=== PATIENT | male | born 1955 | race Caucasian/White ===

== ENCOUNTER 2018-01-31 09:38 | Day surgery (SDC) | payer MEDICAID, SELFPAY ==
[2018-01-31 10:26] VITALS: BP 151/82; PULSE 88; RESP 16; TEMP 37; O2SAT 97
[2018-01-31] MEDS: Lactated Ringers 1,000 ML 30 ML IV ×3 (10:46→14:01)
--- NOTE | 2018-01-31 12:13 | COLE_ITS ---
Date of service: 01/31/18 Time of Service: 12:12 Colonoscopy Report Date of procedure: 01/31/18 Pre-op diagnosis general: Colorectal cancer screening Post-op diagnosis procedure note: other (1. Colon polyps 2. External hemorrhoids) Procedure: Colonoscopy to the cecum with biopsies by hot snare and cold forceps Surgeon: Arvind Porter Anesthesia proc note operative: MAC (James Denise CRNA; ASA 2 Mallampati class II) Estimated blood loss (mL): 1 Pathology: other (1. Sigmoid colon polyp 2. Rectosigmoid polyp 3. Rectal polyp) Complications: None Disposition: same day Indications: 62 y/o male with history of HTN presents for his first colonoscopy screening pre -op. He denies a family history of colon cancer. He reports changes in bowel habits to include bright red blood in stool, with increasing frequency over the past year. He reports that his PCP said he had hemorrhoids followng a rectal exam. Denies black tarry stools, abdominal pain, diarrhea or constipation. He denies constitutional symptoms. Denies use of marijuana or any other recreational or illegal drugs. Prep: Miralax/Dulcolax (Prep quality excellent) Findings: In examining the colon from cecum to anus, the patient was noted to have 3 polyps with stigmata of recent bleeding. The first polyp was identified in the distal sigmoid colon and removed by snare biopsy, and was approximately 1 cm in greatest diameter. Second polyp was identified in the rectosigmoid colon was greater than a centimeter in greatest diameter and removed by hot snare. The last polyp was identified in the rectum and removed by cold biopsy. No other abnormalities are noted in the colon, rectum, and anus, but on examination of the perineum he was noted to have significant external hemorrhoid disease. Procedure Description: The patient was seen in the day surgery waiting area. His identification was confirmed, and procedure checked. He was then brought to the procedure room. Monitoring for telemetry, blood pressure, oxygen saturation, and end tidal CO2 monitoring were applied. An appropriate time out was performed to confirm, identification, allergies, medication, procedure, was performed. Sedation was titrated for affect by the GUS; Once adequate sedation was achieved, I performed a inspection of the external perineum, and a digitial rectal examination. The patient was noted to have significant external hemorrhoid disease but no other abnormalities were noted in the perineum.. On digital rectal examination, there was no blood, no masses, good rectal tone, and a normal prostate. I advanced the colonoscope from the anus to the cecum under direct visualization. The cecum was identified by the ileal-cecal valve, and the appendiceal orifice. The scope was then withdrawn in circumferential manner from the cecum to the rectum. Two polyps were identified in the colon both were a centimeter or greater in diameter and removed by hot snare biopsy. No other abnormalities are noted of the colon the scope was then withdrawn into the rectum. A single polyp less than 1 cm in greatest diameter was identified in the rectum and removed by cold biopsy forceps. No other abnormalities are noted of the rectum or anorectal. The scope was then withdrawn, terminating the procedure. There were no complications during the procedure, and the patient tolerated the procedure well. He was returned to the day surgery recovery area in good condition. Plan: We will await pathology before making further recommendations.
--- NOTE | 2018-01-31 12:53 | BOWEL_PTH ---
PATIENT: Payal Harry LOC: [facility] U#:[id number] AGE/SX: 62/M ROOM: RE01/31/[address]: Arvind Porter DO : 1955 BED: DIS: 01/31/2018 SPEC #: [id number] RECD: 01/31/18 17:17 STATUS: LOLA REQ #: [id number] CHERELLE: 01/31/18 12:[address]: Arvind Porter DEPT: Surgical Specimen RECD BY: Inocencia Alex ENTERED: 01/31/18 17:19 SP TYPE: Bowel OTHR DR: Filiberto Keyes Tissues: 1 - BIOPSY BOWEL 2 - BIOPSY BOWEL 3 - BIOPSY BOWEL Procedures: GROSS AND MICRO LEVEL 4 Comments: [id number]
--- NOTE | 2018-01-31 14:13 | W.PM.DSUDISC ---
Discharge Plan Disposition Patient Disposition: HOME Condition: Good Discharge Details Reason For Visit: SCREENING Attending Provider: Arvind Porter Primary Care Provider: Filiberto Keyes Home Meds and New Rx's Prescriptions: Continue omega-3 fatty acids 1,000 MG capsule 1 tab PO DAILY RF: 0 aspirin [Aspir-81] 81 MG tablet,delayed release (DR/EC) 1 tab PO DAILY RF: 0 amlodipine 10 MG tablet 10 mg PO DAILY Qty: 90 RF: 0 atorvastatin 40 mg Tablet 40 mg PO DAILY RF: 0 labetalol 200 mg Tablet 200 mg PO BID RF: 0 chlorthalidone 25 mg Tablet 25 mg PO DAILY RF: 0 losartan 100 mg Tablet 100 mg PO HS RF: 0 aspirin 325 mg Tablet 325 mg PO DAILY RF: 0 Discharge Instructions Instructions: Colonoscopy (DC) Stand Alone Forms: Colonoscopy Post Instructions, [place] (DSU) Activity:: Activity as Tolerated Diet:: As Tolerated Discharge Orders Discharge Orders: Discharge Order (Routine); Ordered 01/31/18 Ordered By: Arvind Porter DS: Diagnosis Discharge Diagnosis (1) Encounter for colorectal cancer screening: Status: Acute Asessment and Plan: Colonoscopy performed with polypectomy: Colonoscopy Report Date of procedure: 01/31/18 Pre-op diagnosis general: Colorectal cancer screening Post-op diagnosis procedure note: other (1. Colon polyps 2. External hemorrhoids) Procedure: Colonoscopy to the cecum with biopsies by hot snare and cold forceps Surgeon: Arvind Porter Anesthesia proc note operative: MAC (James Denise CRNA; ASA 2 Mallampati class II) Estimated blood loss (mL): 1 Pathology: other (1. Sigmoid colon polyp 2. Rectosigmoid polyp 3. Rectal polyp) Complications: None Disposition: same day Indications: 62 y/o male with history of HTN presents for his first colonoscopy screening pre-op. He denies a family history of colon cancer. He reports changes in bowel habits to include bright red blood in stool, with increasing frequency over the past year. He reports that his PCP said he had hemorrhoids followng a rectal exam. Denies black tarry stools, abdominal pain, diarrhea or constipation. He denies constitutional symptoms. Denies use of marijuana or any other recreational or illegal drugs. Prep: Miralax/Dulcolax (Prep quality excellent) Findings: In examining the colon from cecum to anus, the patient was noted to have 3 polyps with stigmata of recent bleeding. The first polyp was identified in the distal sigmoid colon and removed by snare biopsy, and was approximately 1 cm in greatest diameter. Second polyp was identified in the rectosigmoid colon was greater than a centimeter in greatest diameter and removed by hot snare. The last polyp was identified in the rectum and removed by cold biopsy. No other abnormalities are noted in the colon, rectum, and anus, but on examination of the perineum he was noted to have significant external hemorrhoid disease. Procedure Description: The patient was seen in the day surgery waiting area. His identification was confirmed, and procedure checked. He was then brought to the procedure room. Monitoring for telemetry, blood pressure, oxygen saturation, and end tidal CO2 monitoring were applied. An appropriate time out was performed to confirm, identification, allergies, medication, procedure, was performed. Sedation was titrated for affect by the [employer]; Once adequate sedation was achieved, I performed a inspection of the external perineum, and a digitial rectal examination. The patient was noted to have significant external hemorrhoid disease but no other abnormalities were noted in the perineum.. On digital rectal examination, there was no blood, no masses, good rectal tone, and a normal prostate. I advanced the colonoscope from the anus to the cecum under direct visualization. The cecum was identified by the ileal-cecal valve, and the appendiceal orifice. The scope was then withdrawn in circumferential manner from the cecum to the rectum. Two polyps were identified in the colon both were a centimeter or greater in diameter and removed by hot snare biopsy. No other abnormalities are noted of the colon the scope was then withdrawn into the rectum. A single polyp less than 1 cm in greatest diameter was identified in the rectum and removed by cold biopsy forceps. No other abnormalities are noted of the rectum or anorectal. The scope was then withdrawn, terminating the procedure. There were no complications during the procedure, and the patient tolerated the procedure well. He was returned to the day surgery recovery area in good condition. Plan: We will await pathology before making further recommendations.
[2018-01-31 14:28] VITALS: BP 129/57; PULSE 81; RESP 16; TEMP 35.8; O2SAT 94
== END 2018-01-31 15:00 | disposition home or self-care (01) ==
PROVIDERS: PCP Family Medicine; Visit Provider Surgery
PROC: 0DJD8ZZ Inspection of Lower Intestinal Tract, Via Natural or Artificial Opening Endoscopic (ICD-10-PCS; CPT 45378; principal; 2018-01-31 11:30)
DX: Z12.11 Encounter for screening for malignant neoplasm of colon (principal); D12.5 Benign neoplasm of sigmoid colon; D12.7 Benign neoplasm of rectosigmoid junction; D12.8 Benign neoplasm of rectum; I10 Essential (primary) hypertension; J44.9 Chronic obstructive pulmonary disease, unspecified; Z87.891 Personal history of nicotine dependence
CPT/HCPCS: 45380; 45385; 88305; J2250; J3010

== ENCOUNTER 2018-03-05 08:25 | Outpatient (REF) | payer MEDICAID, SELFPAY ==
[2018-03-05 13:46] LABS: Anion Gap 10.7 mmol/L (3-11); BUN 22 mg/dL (7-18); CO2 27.3 mmol/L (21.0-32.0); CREATININE 1.48 mg/dL (0.70-1.30); Chloride 102 mmol/L (98-107); Cholesterol 134 mg/dL (50-200); Estimated GFR 48.48 (mL/min/1.73m2); Glucose 134 mg/dL (70-100); HDL Cholesterol 42 mg/dL (40-60); LDL CHOLESTEROL 78 mg/dL (<100); Potassium 4.2 mmol/L (3.5-5.1); Sodium 140 mmol/L (136-145); Triglyceride 44 mg/dL (30-150)
== END 2018-03-05 08:45 ==
LOC: NCHCN 08:25
PROVIDERS: PCP Family Medicine; Visit Provider Family Medicine
DX: I10 Essential (primary) hypertension (principal)
CPT/HCPCS: 80048; 80061; 83721

== ENCOUNTER 2018-03-19 09:11 | Outpatient (REF) | payer MEDICAID, SELFPAY ==
[2018-03-19 14:45] LABS: PROTEIN 12.5 mg/dL
[2018-03-19 14:50] LABS: Prot/Crea Ur Ratio 0.15
== END 2018-03-19 09:31 ==
LOC: NCHCN 09:11
PROVIDERS: PCP Family Medicine; Visit Provider Family Medicine
DX: N28.9 Disorder of kidney and ureter, unspecified (principal)
CPT/HCPCS: 82565; 84156

== ENCOUNTER 2018-04-02 08:52 | Outpatient (REF) | payer MEDICAID, SELFPAY ==
[2018-04-02 12:06] LABS: Anion Gap 12.7 mmol/L (3-11); BUN 25 mg/dL (7-18); CO2 23.3 mmol/L (21.0-32.0); CREATININE 1.49 mg/dL (0.70-1.30); Calcium 9.3 mg/dL (8.5-10.1); Chloride 101 mmol/L (98-107); Estimated GFR 48.11 (mL/min/1.73m2); Glucose 138 mg/dL (70-100); Potassium 4.8 mmol/L (3.5-5.1); Sodium 137 mmol/L (136-145)
== END 2018-04-02 09:12 ==
LOC: NCHCN 08:52
PROVIDERS: PCP Family Medicine; Visit Provider Family Medicine
DX: N28.9 Disorder of kidney and ureter, unspecified (principal)
CPT/HCPCS: 80048

== ENCOUNTER 2018-04-16 05:13 | Outpatient (CLI) | payer MEDICAID, SELFPAY ==
--- NOTE | 2018-04-16 14:06 | DI.US_ITS ---
SYMPTOMS/DIAGNOSIS: CAROTID BRUIT, RIGHT PERIPHERAL VASCULAR DISEASE, R09.89, I73.9 BILATERAL DUPLEX CAROTID ULTRASOUND: Duplex evaluation of the carotid circulation was performed according to the usual protocol. Note is made of bilateral antegrade vertebral flow. There is visible atheromatous plaque in the carotid bifurcation on the right. No significant flow velocity elevation identified in common or internal carotid arteries on the right. There is flow velocity elevation to 218 cm/sec in the proximal right external carotid artery. On the left, there is marked visible atheromatous plaque at the bifurcation. There is flow velocity elevation to 217 cm/sec in the proximal internal carotid artery consistent with a 50-60% luminal diameter stenosis. CONCLUSION: Findings consistent with 50-60% luminal diameter stenosis, proximal left internal carotid artery. No additional hemodynamically significant lesions seen.
== END 2018-04-16 05:33 ==
PROVIDERS: PCP Family Medicine; Visit Provider Family Medicine
DX: R09.89 Other specified symptoms and signs involving the circulatory and respiratory systems (principal); I65.22 Occlusion and stenosis of left carotid artery; I73.9 Peripheral vascular disease, unspecified
CPT/HCPCS: 93880

== ENCOUNTER 2018-05-07 11:33 | Outpatient (CLI) | payer MEDICAID, SELFPAY ==
--- NOTE | 2018-05-07 11:48 | W.NUTCONSULT ---
Date of service: 05/07/18 Time of Service: 11:00 Nutritional Consult ASSESSMENT: Mr. Harry presents for nutritional counseling for prediabetes. He reports that he has been going to the gym every day for the past five weeks and it is addictive. He does aerobic activities as well as muscle building activities. He reports that he feels great. Mr. Harry states however that his eating habits are not good. He has changed them somewhat in the past five weks in that he does not eat junk, however he only has a bowl of oatmeal in the morning and then nothing till supper time. Supper is meat, potato, veggie. He tends not to eat after supper. Mr. Harry reports that he is not losing weight yet but he does feel that he is losing inches right now. He is 67.5 and 178 lbs. His BMI is 28.5 kg/m2 which is consistent with overweight. (65 years of age and over it is WNL) There is no recent A1C available, although in 2016 it was 6.0 which is consistent with prediabetes. Mr. Harry reports that he would just like a meal plan. I need something to follow exactly.. Mr. Harry describes a long family history of type 2 diabetes. NUTRITIONAL DIAGNOSIS: Altered nutrition related laboratory values related to prediabetes. INTERVENTION: Acknowledged Mr. Harry's excellent efforts so far in reducing his risk for developing diabetes. We discussed that in addition the high efficacy of physical activity, that a 10% weight reduction can be helpful as well. Discussed the importance of eating 3 to 4 small feedings daily to help with weight loss, but not more than 4 times per day. Provided detailed menus as well as general pattern that he can follow should he want to go off the menu. The meal plan is consistent with 1500 calories per day for weight reduction for him. Mr. Harry verbalized an excellent understanding of the informaiton. MONITORING AND EVALUATION: 1. Mr. Harry will self monitor his progress. He has my contact information and is encouraged to call me with any questions or concerns regarding his nutrition therapy. 2. Mr. Harry will evaluate any need to adjust his nutrition care plan and again is encouraged to contact me for follow up if desired. Thank you for the consult Time Spent in Nutritional Counseling and Treatment: 15 minutes
== END 2018-05-07 11:53 ==
PROVIDERS: PCP Family Medicine; Visit Provider Dietitian, Registered
DX: R73.09 Other abnormal glucose (principal); Z71.3 Dietary counseling and surveillance
CPT/HCPCS: 97802

== ENCOUNTER 2018-08-20 10:04 | Outpatient (REF) | payer MEDICAID, SELFPAY ==
[2018-08-20 12:27] LABS: Anion Gap 11.4 mmol/L (3-11); BUN 23 mg/dL (7-18); CO2 25.6 mmol/L (21.0-32.0); CREATININE 1.26 mg/dL (0.70-1.30); Calcium 9.6 mg/dL (8.5-10.1); Chloride 101 mmol/L (98-107); Estimated GFR 58.38 (mL/min/1.73m2); Glucose 118 mg/dL (70-100); Potassium 4.6 mmol/L (3.5-5.1); Sodium 138 mmol/L (136-145)
== END 2018-08-20 10:24 ==
LOC: NCHCN 10:04
PROVIDERS: PCP Family Medicine; Visit Provider Family Medicine
DX: N28.9 Disorder of kidney and ureter, unspecified (principal); I10 Essential (primary) hypertension
CPT/HCPCS: 80048

== ENCOUNTER 2019-01-26 11:13 | Outpatient (REF) | payer MEDICAID, SELFPAY ==
[2019-01-26 18:41] LABS: Anion Gap 9.8 mmol/L (3-11); BUN 27 mg/dL (7-18); CO2 26.2 mmol/L (21.0-32.0); CREATININE 1.33 mg/dL (0.70-1.30); Calcium 9.3 mg/dL (8.5-10.1); Chloride 103 mmol/L (98-107); Estimated GFR 54.66 (mL/min/1.73m2); Glucose 126 mg/dL (70-100); Potassium 4.8 mmol/L (3.5-5.1); Sodium 139 mmol/L (136-145)
== END 2019-01-26 11:33 ==
LOC: NCHCN 11:13
PROVIDERS: PCP Family Medicine; Visit Provider Family Medicine
DX: I10 Essential (primary) hypertension (principal)
CPT/HCPCS: 80048

== ENCOUNTER 2019-12-15 09:55 | Outpatient (REF) | payer MEDICAID, SELFPAY ==
[2019-12-15 18:58] LABS: Anion Gap 9.8 mmol/L (3-11); BUN 27 mg/dL (7-18); CO2 24.2 mmol/L (21.0-32.0); CREATININE 1.45 mg/dL (0.70-1.30); Calcium 8.8 mg/dL (8.5-10.1); Chloride 104 mmol/L (98-107); Estimated GFR 49.48 (mL/min/1.73m2); Glucose 149 mg/dL (74-106); Potassium 4.6 mmol/L (3.5-5.1); Sodium 138 mmol/L (136-145)
[2019-12-17 11:14] LABS: Hepatitis C Ab w Rflx HCV PCR Negative (Negative)
== END 2019-12-15 10:15 ==
LOC: NCHCN 09:55
PROVIDERS: PCP Family Medicine; Visit Provider Family Medicine
DX: N28.9 Disorder of kidney and ureter, unspecified (principal); Z11.59 Encounter for screening for other viral diseases
CPT/HCPCS: 80048; 86803

== ENCOUNTER 2021-04-21 18:28 | Outpatient (REF) | payer MEDICAID, SELFPAY ==
[2021-04-21 19:18] LABS: HGB 12.3 g/dL (13.5-17.5); MCH 31.1 pg (27.0-33.0); MCHC 33.2 % (32.0-36.0); MCV 93.7 fL (80-95); MPV 10.2 fL (8.0-11.0); Platelet Count 230 10^3/uL (130-400); RBC 3.95 10^6/uL (4.36-5.78); RDW 13.1 % (11.8-14.1); RDW-SD 45.1 fL; WBC 4.57 10^3/uL (4.4-10.8)
[2021-04-21 19:30] LABS: Hemoglobin A1C 7.1 % (<5.7)
[2021-04-21 19:36] LABS: Anion Gap 11.6 mmol/L (3-11); BUN 20 mg/dL (7-18); CO2 24.4 mmol/L (21.0-32.0); CREATININE 1.3 mg/dL (0.70-1.30); Calcium 8.8 mg/dL (8.5-10.1); Calculated LDL 74 mg/dL (<100); Chloride 102 mmol/L (98-107); Cholesterol 139 mg/dL (<200); Estimated GFR 55.75 (mL/min/1.73m2); Glucose 129 mg/dL (74-106); HDL Cholesterol 42 mg/dL (40-60); Sodium 138 mmol/L (136-145); Triglyceride 118 mg/dL (<150)
[2021-04-21 19:47] LABS: PHOSPHORUS 3.4 mg/dL (2.6-4.7)
== END 2021-04-21 18:29 | disposition home or self-care (01) ==
LOC: NCHCN 18:28
PROVIDERS: PCP Family Medicine; Visit Provider Family Medicine
DX: N18.31 Chronic kidney disease, stage 3a (principal); R73.03 Prediabetes; I10 Essential (primary) hypertension; I73.89 Other specified peripheral vascular diseases
CPT/HCPCS: 80048; 80061; 85027; 83036; 84100

== ENCOUNTER 2022-01-01 15:01 | Outpatient (REF) | payer MEDICAID, SELFPAY ==
[2022-01-01 19:19] LABS: HGB 12.3 g/dL (13.5-17.5)
[2022-01-01 19:43] LABS: Hemoglobin A1C 7.1 % (<5.7)
[2022-01-01 20:01] LABS: Ferritin 131 ng/mL (26-388); Vitamin B12 1248 pg/mL (193-986)
[2022-01-01 20:12] LABS: Iron 90 ug/dL (65-175); Total Iron Binding Capacity 308 ug/dL (250-450); Transferrin Sat 29 % (20-55)
== END 2022-01-01 15:02 | disposition home or self-care (01) ==
LOC: NCHCN 15:01
PROVIDERS: PCP Family Medicine; Visit Provider Family Medicine
DX: E11.9 Type 2 diabetes mellitus without complications (principal); D64.9 Anemia, unspecified
CPT/HCPCS: 82607; 82728; 83036; 83540; 83550; 85018

== ENCOUNTER 2022-05-07 10:45 | Outpatient (REF) | payer MEDICAID, SELFPAY ==
[2022-05-07 15:29] LABS: Anion Gap 12.1 mmol/L (3-11); BUN 29 mg/dL (7-18); CO2 22.9 mmol/L (21.0-32.0); CREATININE 1.4 mg/dL (0.70-1.30); Calcium 10.2 mg/dL (8.5-10.1); Chloride 101 mmol/L (98-107); Estimated GFR 56.13 (mL/min/1.73m2); Glucose 146 mg/dL (74-106); Potassium 4.2 mmol/L (3.5-5.1); Sodium 136 mmol/L (136-145)
== END 2022-05-07 10:46 | disposition home or self-care (01) ==
LOC: NCHCN 10:45
PROVIDERS: PCP Family Medicine; Visit Provider Family Medicine
DX: I10 Essential (primary) hypertension (principal)
CPT/HCPCS: 80048

== ENCOUNTER 2023-01-14 13:33 | Outpatient (REF) | payer MEDICAID, SELFPAY ==
[2023-01-14 15:13] LABS: HCT 36.9 % (40.0-50.0); HGB 12.6 g/dL (13.5-17.5); MCHC 34.1 % (32.0-36.0); MCV 94 fL (80-95); MPV 10.2 fL (8.0-11.0); Platelet Count 242 10^3/uL (130-400); RBC 3.94 10^6/uL (4.36-5.78); RDW 13.2 % (11.8-14.1); RDW-SD 45.2 fL; WBC 4.94 10^3/uL (4.4-10.8)
[2023-01-14 15:29] LABS: Albumin 4.3 g/dL (3.4-5.0); Anion Gap 12.8 mmol/L (3-11); BUN 22 mg/dL (7-18); CO2 22.2 mmol/L (21.0-32.0); CREATININE 1.5 mg/dL (0.70-1.30); Chloride 100 mmol/L (98-107); Estimated GFR 51.35 (mL/min/1.73m2); Glucose 142 mg/dL (74-106); Potassium 4.6 mmol/L (3.5-5.1); Sodium 135 mmol/L (136-145)
== END 2023-01-14 13:34 | disposition home or self-care (01) ==
LOC: NCHCN 13:33
PROVIDERS: PCP Family Medicine; Visit Provider Family Medicine
DX: N18.31 Chronic kidney disease, stage 3a (principal); E83.52 Hypercalcemia
CPT/HCPCS: 80048; 85027; 82040

== ENCOUNTER 2023-04-25 11:56 | Outpatient (REF) | payer MEDICARE, MEDICAID, SELFPAY | END 2023-04-25 11:57 | disposition home or self-care (01) | LOC: NCHCN 11:56 | PROVIDERS: PCP Family Medicine; Visit Provider Family Medicine | DX: E11.9 Type 2 diabetes mellitus without complications (principal) | CPT/HCPCS: 83036 ==

== ENCOUNTER → 2023-06-06 14:02 | Outpatient (BNVA) | payer MEDICARE, MEDICAID, SELFPAY | PROVIDERS: PCP Family Medicine; Referring Provider Family Medicine; Visit Provider Physical Therapy Assistant | DX: Z12.11 Encounter for screening for malignant neoplasm of colon (principal); Z86.010 Personal history of colon polyps ==

== ENCOUNTER 2024-08-14 14:04 | Outpatient (REF) | payer MEDICARE, MEDICAID, SELFPAY ==
[2024-08-14 15:27] LABS: Abs Immature Grans 0.06 10^3/uL (0.0-0.06); Absolute Basophil Count 0.03 10^3/uL (0.0-0.2); Absolute Eosinophil Count 0.13 10^3/uL (0.0-0.7); Absolute Lymphocyte Count 1.54 10^3/uL (1.2-3.4); Absolute Monocyte Count 0.48 10^3/uL (0.1-0.8); Absolute Neutrophil Count 3.26 10^3/uL (1.2-6.7); Basophils % 0.5 %; Eosinophils % 2.4 %; HCT 34.1 % (40.0-50.0); HGB 11.5 g/dL (13.5-17.5); Immature Grans % 1.1 %; MCHC 33.7 % (32.0-36.0); MCV 95 fL (80-95); MPV 10.3 fL (8.0-11.0); Monocytes % 8.7 %; Neutrophils % 59.3 %; Platelet Count 224 10^3/uL (130-400); RBC 3.59 10^6/uL (4.36-5.78); RDW 13.1 % (11.8-14.1); RDW-SD 45.9 fL
[2024-08-14 16:05] LABS: Anion Gap 11.6 mmol/L (3-11); BUN 29 mg/dL (7-18); CO2 21.4 mmol/L (21.0-32.0); CREATININE 1.4 mg/dL (0.70-1.30); Calcium 9.6 mg/dL (8.5-10.1); Calculated LDL 66 mg/dL (<100); Chloride 102 mmol/L (98-107); Cholesterol 122 mg/dL (<200); Estimated GFR 55.43 (mL/min/1.73m2); Glucose 117 mg/dL (74-106); HDL Cholesterol 40 mg/dL (>or=40); Potassium 5.1 mmol/L (3.5-5.1); Sodium 135 mmol/L (136-145); Triglyceride 80 mg/dL (<150)
[2024-08-14 16:42] LABS: COMMENT (LAB VIEW ONLY) 33.21 mg/dL; Microalb ug/mg Crea 14.2 ug/mg Cr
== END 2024-08-14 14:05 | disposition home or self-care (01) ==
LOC: NCHCN 14:04
PROVIDERS: PCP Nurse Practitioner Family; Visit Provider Student in an Organized Health Care Education/Training Program
DX: E11.9 Type 2 diabetes mellitus without complications (principal); I10 Essential (primary) hypertension
CPT/HCPCS: 80048; 80061; 82043; 82570; 85025